=== PATIENT | male | born 1965 | race Asian ===

== ENCOUNTER 2017-11-01 17:41 | Emergency (ER) | payer OTHER ==
[2017-11-01 17:54] VITALS: BP 148/84; PULSE 83; TEMP 98.3; BMI 27.8
--- NOTE | 2017-11-01 20:16 | PDOC ---
History of Present Illness - History of Present Illness Initial Comments: 11/01/17 20:20 Patient is a 52 M with PMHx of hypertension, who presents to the ED for 2 days of left leg pain. Patient states that the pain started at left heel and traveled up to the groin region. He denies trauma. He denies recent travel. He denies any recent fevers, chills, headache or dizziness. He denies any recent nausea, vomit, diarrhea or constipation. He denies any recent chest pain or shortness of breath. He denies any recent dysuria, frequency, urgency or hematuria. Social Hx: daily cigarette use. PCP: Ion Charles <Eboni Burdick - Last Filed: 11/01/17 20:20> - General History Source: Patient <Fredy Rutherford - Last Filed: 11/01/17 21:14> - General Chief Complaint: Chronic pain Stated Complaint: LEG PAIN Time Seen by Provider: 11/01/17 20:08 Past History <Eboni Burdick - Last Filed: 11/01/17 20:20> - Past Medical History COPD: No Other medical history: DENIES. - Suicide/Smoking/Psychosocial Hx Smoking History: Current every day smoker Number of Cigarettes Smoked Daily: 10 Information on smoking cessation initiated: No Hx Alcohol Use: Yes (OCCASSIONALLY.) Drug/Substance Use Hx: No Substance Use Type: Alcohol <Fredy Rutherford - Last Filed: 11/01/17 21:14> - Past Medical History Allergies/Adverse Reactions: Allergies Allergy/AdvReac Type Severity Reaction Status Date / Time No Known Allergies Allergy Verified 11/01/17 17:52 Review of Systems - Review of Systems Comments:: 11/01/17 20:21 CONSTITUTIONAL: Absent: fever, no chills, no fatigue EYES: Absent: visual changes ENT: Absent: ear pain, no sore throat CARDIOVASCULAR: Absent: chest pain, no palpitations RESPIRATORY: Absent: cough, no SOB GI: Absent: abdominal pain, no nausea, no vomiting, no constipation, no diarrhea GENITOURINARY: Absent: dysuria, no frequency, no hematuria MUSCULOSKELETAL: Present: left leg pain Absent: back pain, no arthralgia. SKIN: Absent: rash <Eboni Burdick - Last Filed: 11/01/17 20:20> *Physical Exam - Vital Signs Last Vital Signs Temp Pulse Resp BP Pulse Ox 98.3 F 83 18 148/84 99 11/01/17 17:51 11/01/17 17:51 11/01/17 17:51 11/01/17 17:51 11/01/17 17:51 - Physical Exam Comments: 11/01/17 20:22 GENERAL: Well-appearing, well-nourished. No apparent distress. HEENT: Normocephalic, atraumatic. PERRL, EOM intact. CARDIOVASCULAR: Normal S1, S2. Regular rate and rhythm. PULMONARY: Clear to auscultation bilaterally. ABDOMEN: Soft, non-distended, non-tender. EXTREMITIES: Diffuse varicosities surrounding the left foot, ankle, and calf, with surrounding areas of ecchymosis. Normal ROM in all four extremities. No gross deformities. SKIN: Warm, dry. No rash NEUROLOGICAL: No focal neurological deficits. <Eboni Burdick - Last Filed: 11/01/17 20:20> - Vital Signs Last Vital Signs Temp Pulse Resp BP Pulse Ox 98.3 F 83 18 148/84 99 11/01/17 17:51 11/01/17 17:51 11/01/17 17:51 11/01/17 17:51 11/01/17 17:51 <Fredy Rutherford - Last Filed: 11/01/17 21:14> Medical Decision Making - Medical Decision Making 11/01/17 21:14 Dr. Rutherford: The scribe's documentation has been prepared under my direction and personally reviewed by me in its entirery. I confirm that the note above accurately reflects all work, treatment, procedures, and medical decision making performed by me. <Fredy Rutherford - Last Filed: 11/01/17 21:14> *DC/Admit/Observation/Transfer - Attestations Scribe Attestion: 11/01/17 20:23 Documentation prepared by Eboni Burdick, acting as medical nurse for Fredy Rutherford MD. <Eboni Burdick - Last Filed: 11/01/17 20:20> - Discharge Dispostion Admit: No <Fredy Rutherford - Last Filed: 11/01/17 21:14> Diagnosis at time of Disposition: Varicose vein of leg - Discharge Dispostion Disposition: HOME Condition at time of disposition: Stable - Referrals Referrals: Ion Charles MD [Primary Care Provider] - Serafin Rosa MD [Staff Physician] - - Patient Instructions Printed Discharge Instructions: DI for Varicose Veins Additional Instructions: Please follow up with your doctor and the vascular surgeon that was referred to you here in the ER> Rest, and elevate legs as much as possible in the meantime. - Post Discharge Activity
== END 2017-11-01 21:18 | disposition home or self-care (01) ==
LOC: JERFT 17:41 → SUPCPDRO 17:41 → JER 17:41
DX: F17.210 Nicotine dependence, cigarettes, uncomplicated (principal); I10 Essential (primary) hypertension
CPT/HCPCS: 93971-TC; 99281-25

== ENCOUNTER 2018-02-14 20:56 | Emergency (ER) | payer OTHER ==
--- NOTE | 2018-02-14 21:01 | PDOC ---
Rapid Medical Evaluation Time Seen by Provider: 02/14/18 20:57 Medical Evaluation: Allergies Allergy/AdvReac Type Severity Reaction Status Date / Time No Known Allergies Allergy Verified 11/01/17 17:52 02/14/18 20:57 I have performed a brief in-person evaluation of this patient. The patient presents with a chief complaint of: body aches, rhinorrhea, sinus pressure and right knee pain Pertinent physical exam findings: sinus tenderness. No deformity, bony tenderness or swelling to right knee I have ordered the following: xray The patient will proceed to the ED for further evaluation. Discharge Disposition - Diagnosis Frontal sinus pain - Referrals - Patient Instructions - Post Discharge Activity
[2018-02-14 21:09] VITALS: BP 170/100; PULSE 90; TEMP 98.3; BMI 27.8
--- NOTE | 2018-02-14 22:42 | PDOC ---
*Physical Exam - Vital Signs Last Vital Signs Temp Pulse Resp BP Pulse Ox 98.3 F 90 18 170/100 97 02/14/18 21:07 02/14/18 21:07 02/14/18 21:07 02/14/18 21:07 02/14/18 21:07 - Physical Exam Comments: 02/14/18 22:41 GENERAL: [The patient is awake, alert, and fully oriented, in no acute distress. ] HEAD: [Normal with no signs of trauma.] EYES: [Pupils equal, round and reactive to light, extraocular movements intact, sclera anicteric, conjunctiva clear.] ENT: [Ears normal, nares patent WITH CLEAR DRAINAGE oropharynx clear without exudates. Moist mucous membranes.] NECK: [Normal range of motion, supple without lymphadenopathy, JVD, or masses.] LUNGS: [Breath sounds equal, clear to auscultation bilaterally. No wheezes, and no crackles.] HEART: [Regular rate and rhythm, normal S1 and S2 without murmur, rub or gallop. ] ABDOMEN: [Soft, nontender, normoactive bowel sounds. No guarding, no rebound. No masses.] EXTREMITIES: [Normal range of motion, no edema. No clubbing or cyanosis. No cords, erythema, or tenderness.] Right knee is normal skin color and temperature is full range of motion with terminal flexion. He has no instability posterior medial joint line tenderness fine For soft and nontender is neurovascularly intact NEUROLOGICAL: [Cranial nerves II through XII grossly intact. Normal speech, normal gait.] PSYCH: [Normal mood, normal affect.] SKIN: [Warm, Dry, normal turgor, no rashes or lesions noted.] 02/14/18 22:47 Medical Decision Making - Medical Decision Making Right knee x-rays are normal 02/14/18 22:47 *DC/Admit/Observation/Transfer Diagnosis at time of Disposition: Frontal sinus pain, Knee pain - Discharge Dispostion Disposition: ELOPED - Referrals Referrals: Isrrael Gautam MD [Staff Physician] - - Patient Instructions Additional Instructions: Lopid orthopedic surgery for your knee pain - Post Discharge Activity
== END 2018-02-14 23:04 | disposition home or self-care (01) ==
LOC: JERFT 20:56
DX: J01.10 Acute frontal sinusitis, unspecified (principal); M25.561 Pain in right knee
CPT/HCPCS: 73562-TC-RT-FY; 87804; 99281-25

== ENCOUNTER 2018-05-16 21:18 | Emergency (ER) | payer OTHER ==
--- NOTE | 2018-05-16 21:42 | PDOC ---
Rapid Medical Evaluation Chief Complaint: Headache Time Seen by Provider: 05/16/18 21:37 Medical Evaluation: Allergies Allergy/AdvReac Type Severity Reaction Status Date / Time No Known Allergies Allergy Verified 02/14/18 21:05 05/16/18 21:37 c/o headache left side of face and head since this am.with pain to both legs and burning sensation to both feet. recent URI symptoms./ + smoker PE; patient CN intact, equal strength patient alert ox3. + left maxillay sinus tenderness A: headache P; labs, ct head paTIENT To the ER for further management of care. Discharge Disposition - Diagnosis Headache Qualifiers: Headache type: unspecified Headache chronicity pattern: acute headache Intractability: not intractable Qualified Code(s): R51 - Headache - Referrals - Patient Instructions - Post Discharge Activity
[2018-05-16 21:45] VITALS: BP 165/95; PULSE 88; TEMP 99.1; BMI 30.4
[2018-05-16 23:32] LABS: BASO % 0.4 % (0-2.0); EOS % 1.8 % (0-4.5); HEMATOCRIT 44.5 % (35.4-49); HEMOGLOBIN 15.1 GM/dL (11.7-16.9); MCH 30.3 pg (25.7-33.7); MEAN CELL VOLUME 89.2 fl (80-96); MEAN PLT VOLUME 9.4 fl (7.5-11.1); MONO % 9.3 % (3.8-10.2); NEUT % 57.5 % (42.8-82.8); PLATELET COUNT 208 K/MM3 (134-434); RBC 4.99 M/mm3 (4.00-5.60); RDW 15.2 % (11.9-15.9)
[2018-05-16 23:54] LABS: ALBUMIN 3.8 g/dl (3.4-5.0); ANION GAP 6 (8-16); BILIRUBIN,TOTAL 0.7 mg/dL (0.2-1.0); BLOOD UREA NITROGEN 11 mg/dL (7-18); CALCIUM 9.1 mg/dL (8.5-10.1); CHLORIDE 102 mmol/L (98-107); CO2 30 mmol/L (21-32); GLUCOSE,RANDOM 155 mg/dL (74-106); POTASSIUM 4.2 mmol/L (3.5-5.1); SGOT/AST 18 U/L (15-37); SGPT/ALT 50 U/L (12-78); SODIUM 138 mmol/L (136-145); TOT PROT 7.4 g/dl (6.4-8.2)
[2018-05-16 23:56] LABS: ALK PHOS 62 U/L (45-117)
--- NOTE | 2018-05-17 00:07 | PDOC ---
History of Present Illness - General Chief Complaint: Headache Stated Complaint: FACIAL PAIN/BLOOD PRESSURE PROBLEM Time Seen by Provider: 05/16/18 21:37 History Source: Patient - History of Present Illness Initial Comments: 05/17/18 00:45 53-year-old male complaining of left-sided facial pain and headache, bodyaches for 1 day. Reports minimal pain relief with ibuprofen. Patient denies fever, chills, nausea, vomiting, chest pain, diarrhea, abdominal pain. Patient reports that he had a URI symptoms 1 week ago patient is an everyday smoker. Past medical history of hypertension. 05/17/18 00:46 Past History - Past Medical History Allergies/Adverse Reactions: Allergies Allergy/AdvReac Type Severity Reaction Status Date / Time No Known Allergies Allergy Verified 05/16/18 21:41 Home Medications: Ambulatory Orders Amlodipine Besylate [Norvasc -] 10 mg PO PRN PRN 02/14/18 Omeprazole 20 mg PO DAILY 02/14/18 Amoxicillin/Potassium Clav [Augmentin 875-125 Tablet] 1 each PO BID #20 tablet 05/17/18 Fluticasone Prop 0.05% Nasal [Flonase -] 1 - 2 spray NS BID #1 spray.pump Ibuprofen 600 mg PO QID PRN #20 tablet 05/17/18 COPD: No GI Disorders: Yes (gerd) HTN: Yes (non compliant) - Suicide/Smoking/Psychosocial Hx Smoking History: Current every day smoker Have you smoked in the past 12 months: Yes Number of Cigarettes Smoked Daily: 10 Information on smoking cessation initiated: No Hx Alcohol Use: No Drug/Substance Use Hx: No Substance Use Type: None Review of Systems - Review of Systems Able to Perform ROS?: Yes Is the patient limited [place] proficient: No Constitutional: Yes: Chills, Other HEENTM: Yes: Other (left side facial pain) Respiratory: No: Symptoms reported, See HPI, Cough, Orthopnea, Shortness of Breath, SOB with Exertion, SOB at Rest, Stridor, Wheezing, Productive cough, Hemoptysis, Other Musculoskeletal: Yes: Other (bilateral leg pain) Neurological: Yes: Headache. No: Symptoms reported, See HPI, Numbness, Paresthesia, Pre-Existing Deficit, Seizure, Tingling, Tremors, Weakness, Unsteady Gait, Ataxia, Dizziness, Other *Physical Exam - Vital Signs Last Vital Signs Temp Pulse Resp BP Pulse Ox 99.1 F 88 18 165/95 98 05/16/18 21:42 05/16/18 21:42 05/16/18 21:42 05/16/18 21:42 05/16/18 21:42 - Physical Exam General Appearance: Yes: Appropriately Dressed HEENT: positive: Other (left maxillary sinus tenderness.) Respiratory/Chest: positive: Lungs Clear, Normal Breath Sounds Extremity: positive: Normal Capillary Refill, Normal Inspection, Normal Range of Motion Integumentary: positive: Normal Color, Dry, Warm Neurologic: positive: client support coordinator II-XII NML intact, Fully Oriented, Alert, Normal Mood/ Affect, Motor Strength 5/5, Finger to Nose (wnl) ED Treatment Course - LABORATORY CBC & Chemistry Diagram: 05/16/18 22:50 05/16/18 22:50 - ADDITIONAL ORDERS Additional order review: 05/16/18 22:50 RBC 4.99 MCV 89.2 MCHC 34.0 RDW 15.2 MPV 9.4 Neutrophils % 57.5 Lymphocytes % 31.0 Monocytes % 9.3 Eosinophils % 1.8 Basophils % 0.4 - RADIOLOGY Radiology Studies Ordered: Category Date Time Status HEAD CT WITHOUT CONTRAST [CT] Stat CT Scan 05/16/18 21:[address] W/O CONTRAST [CT] Stat CT Scan 05/16/18 21:44 Taken Progress Note - Progress Note Progress Note: Sinusitis P: cbc cmp ct sinus ct head labs pain control and antibiotics *DC/Admit/Observation/Transfer Diagnosis at time of Disposition: Headache Qualifiers: Headache type: unspecified Headache chronicity pattern: acute headache Intractability: not intractable Qualified Code(s): R51 - Headache Sinusitis, acute Qualifiers: Sinusitis location: maxillary Recurrence: non-recurrent Qualified Code(s): J01.00 - Acute maxillary sinusitis, unspecified - Discharge Dispostion Disposition: HOME - Prescriptions Prescriptions: Amoxicillin/Potassium Clav [Augmentin 875-125 Tablet] 1 each PO BID #20 tablet Fluticasone Prop 0.05% Nasal [Flonase -] 1 - 2 spray NS BID #1 spray.pump Ibuprofen 600 mg PO QID PRN #20 tablet PRN Reason: Moderate Pain - Referrals Referrals: Ion Charles MD [Primary Care Provider] - Call tomorrow - Patient Instructions Printed Discharge Instructions: DI for Sinusitis Additional Instructions: Continue Augmentin as prescribed twice a day for 10 days. Use Flonase twice a day to each nostril.. Follow-up with your doctor as soon as possible Return to the ER if symptoms worsen. - Post Discharge Activity Forms/Work/School Notes: Back to Work
[2018-05-17] MEDS ORDERED: KETOROLAC TROMETHAMINE 30 MG/1 ML VIAL IVPUSH ONE (00:27)
[2018-05-17] MEDS ORDERED: ACETAMINOPHEN 325 MG TABLET (FP) PO ONE (00:27)
[2018-05-17] MEDS ORDERED: MECLIZINE HCL 25 MG TABLET (FP) PO ONE (00:27)
[2018-05-17] MEDS ORDERED: AMOX TR/POT CLAV 875MG/125MG TABLETS (FP) PO ONE (00:27)
[2018-05-17] MEDS ORDERED: MECLIZINE HCL 25 MG TABLET (FP) ONE (00:33)
[2018-05-17] MEDS ORDERED: ACETAMINOPHEN 325 MG TABLET (FP) ONE (00:33)
[2018-05-17] MEDS ORDERED: AMOX TR/POT CLAV 875MG/125MG TABLETS (FP) ONE (00:33)
[2018-05-17] MEDS ORDERED: KETOROLAC TROMETHAMINE 30 MG/1 ML VIAL ONE (00:33)
== END 2018-05-17 01:03 | disposition home or self-care (01) ==
LOC: JER 21:18
PROC: 3E0333Z Introduction of Anti-inflammatory into Peripheral Vein, Percutaneous Approach (ICD-10-PCS; principal; 2018-05-16)
DX: R51 Headache (principal); F17.210 Nicotine dependence, cigarettes, uncomplicated; I10 Essential (primary) hypertension
CPT/HCPCS: 36415; 70450-TC; 70486-TC; 80053; 84484; 85025; 99283-25

== ENCOUNTER 2024-11-27 08:10 | Emergency (ER) | payer BC, OTHER ==
[2024-11-27 08:20] VITALS: BP 143/79; PULSE 95; RESP 18; TEMP 99.3; BMI 28.7
== END 2024-11-27 10:00 | disposition home or self-care (01) ==
LOC: JERFT 08:10
DX: J10.1 Influenza due to other identified influenza virus with other respiratory manifestations (principal); R51.9 Headache, unspecified; R09.81 Nasal congestion; M79.18 Myalgia, other site; Z20.822 Contact with and (suspected) exposure to COVID-19
CPT/HCPCS: 0241U-QW; 99283-25